=== PATIENT | male | born 1975 | race Caucasian/White ===

== ENCOUNTER 2017-04-18 18:11 | Emergency (ER) | payer OTHER ==
[~2017-04-18] VITALS: Ht 170.2 cm; Wt 77.5 kg
[2017-04-18 18:41] VITALS: Ht 170.2 cm; Wt 77.5 kg
[2017-04-18] MEDS ORDERED: KETOROLAC 60 MG INJ IM STA (21:27)
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
--- NOTE | 2017-04-18 22:56 | RADRPT ---
PROCEDURE: CT lumbar spine without contrast CLINICAL INDICATION: Back pain. TECHNIQUE: A CT scan of the lumbar spine was performed without intravenous contrast. Coronal and s agittal reformatted images were generated. CTDIvol: 12.37 mGy. DLP: 324.85 mGy-cm. One or more of the following dose reduction techniques were used: - Automated exposure control. - Adjustment of the mA and/or kV according to patient size. - Use of iterative reconstruction technique. COMPARISON: None. FINDINGS: The lumbar lordosis is preserved without spondylolisthesis. The vertebral body heights are maintain ed. Bone mineralization is normal and there is no suspicious osseous lesion. No fracture or sublux ation is identified. T12-L1: There is no significant degenerative change. No spinal canal stenosis or neural foraminal n arrowing is seen. L1-L2: There is minimal disc bulging without significant spinal canal stenosis or neural foraminal n arrowing. L2-L3: There is minimal disc bulging without significant spinal canal stenosis or neural foraminal n arrowing. L3-L4: There is mild disc bulging, leading to borderline spinal canal stenosis ([address]). No significant neural foraminal narrowing is noted at this level. L4-L5: There is mild disc bulging, without spinal canal stenosis. Mild left neural foraminal narrowi ng is noted due to disc bulging. L5-S1: There is a small central disc protrusion, without spinal canal stenosis. No neural foraminal narrowing is identified. There are mild arterial calcifications. IMPRESSION: 1. No lumbar spine fracture or subluxation. 2. No significant spinal canal stenosis. 3. Mild left neural foraminal narrowing at L4-L5. RPTAT: HTAR .Satnam Dinh MD, Date Time Electronically viewed and signed by .Satnam Dinh MD, MD on 04/18/2017 22:56 .R/
--- NOTE | 2017-04-18 22:58 | RADRPT ---
PROCEDURE: CT thoracic spine without contrast. CLINICAL INDICATION: Back pain. TECHNIQUE: A CT of the thoracic spine was performed without intravenous contrast. Coronal and sag ittal reformats were generated. CTDIvol: 14.38 mGy. DLP: 607.15 mGy-cm. One or more of the following dose reduction techniques were used: - Automated exposure control. - Adjustment of the mA and/or kV according to patient size. - Use of iterative reconstruction technique. COMPARISON: None. FINDINGS: There is a normal thoracic kyphosis. No spondylolisthesis is seen. The vertebral body heights are m aintained. No fracture or subluxation is seen. The paraspinal soft tissues are normal. There is no significant degenerative change. The extra spinal soft tissue structures are unremarkable. IMPRESSION: 1. No fracture or subluxation of the thoracic spine. 2. No significant degenerative change. RPTAT: HTAR .Satnam Dinh MD, MD Date Time Electronically viewed and signed by .Satnam Dinh MD, on 04/18/2017 22:58 .R/
[2017-04-18] MEDS ORDERED: HYDR-906 PO ×3 (23:30→23:34)
[2017-04-18] MEDS ORDERED: CYCL-319 PO (23:30)
[2017-04-18] MEDS ORDERED: IBUP-1542 PO (23:30)
== END 2017-04-18 23:41 | disposition home or self-care (01) ==
LOC: FTE 18:11
DX: M54.5 Low back pain (principal); F17.210 Nicotine dependence, cigarettes, uncomplicated
CPT/HCPCS: 72128; 72131; 96372; J1885; Z7502